=== PATIENT | female | born 1940 | race Caucasian/White ===

== ENCOUNTER → 2016-08-17 | Outpatient (CLI) | payer MEDICARE ==
--- NOTE | 2016-08-18 07:51 | WWHP ---
DATE OF SERVICE: 08/17/2016 CHIEF COMPLAINT: The patient is here for her routine gynecologic exam and mammogram. HPI: This is a 75-year-old G0 who has lifelong history of primary amenorrhea. She has never had a menstrual period and denies any vaginal bleeding. She is without gynecologic complaints. PAST MEDICAL HISTORY: Chronic hypertension, cardiac arrhythmia, hypothyroidism, elevated cholesterol, glaucoma, and osteoporosis. MEDICATIONS: 1. Sectral 400 mg daily. 2. Norvasc 5 mg daily. 3. Synthroid 75 mcg daily. 4. Simvastatin 10 mg daily. 5. Calcium with vitamin D 600 mg b.i.d. 6. Cosopt eye drops daily. 7. Restasis eye drops daily. 8. Vitamin D 50,000 units every other week. ALLERGIES: CORDARONE which caused abnormal thyroid testing. Past surgical history is unchanged from the 2014 H&P. 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 SOCIAL HISTORY: She denies tobacco, alcohol, and drug use and has 2 adopted children and has been a since 2007. FAMILY HISTORY: Unchanged from the 2015 H&P. REVIEW OF SYSTEMS: She has gained about 3 pounds over the last year. She denies respiratory or cardiac problems. GI: Occasional irritable bowel symptoms. She denies maltreatment or falling. She denies any problem with urinary incontinence. PHYSICAL EXAM: Blood pressure 147/64. Height 4 feet 10 inches, weight 93 pounds. Temperature 97.7, pulse 79. This is a short statured, well-nourished white female who is alert and oriented x3 in no acute distress. HEENT is within normal limits. NECK: Supple without mass or thyromegaly. CHEST AND LUNGS: Clear to auscultation. HEART: Regular rate and rhythm. Breasts are without mass or discharge. Axillary exam is negative for adenopathy. BACK: Negative for CVA tenderness. ABDOMEN: Soft, nontender, without palpable masses. PELVIC EXAM: External genitalia reveals moderate atrophy without lesions. Cervix and vagina reveal moderate atrophy without lesions. There is no evidence of vaginal prolapse. The uterus is midposition, nongravid size and nontender. There are no palpable adnexal masses or tenderness. Rectovaginal exam reveals an external hemorrhoid which is red in color measuring approximately 2 cm, which is stable from her previous exam. This is soft and nontender. The rectal exam is otherwise unremarkable. Rectovaginal exam is negative for mass or tenderness and is negative for occult blood. EXTREMITIES: Nontender. IMPRESSION: 1. A 75-year-old menopausal female with lifelong history of primary amenorrhea with normal gynecologic exam. 2. History of osteoporosis and the patient is declining any treatment. 3. Asymptomatic hemorrhoid. PLAN: 1. Pap smear was performed. 2. Self breast examination was discussed. 3. Mammogram will be done today. 4. Osteoporosis management was discussed. We have again discussed the option of medication to help prevent bone fracture and she is declining treatment at this time. 5. She did get flu shot earlier in the fall season. 6. She will return in one year.
--- NOTE | 2016-08-18 10:44 | MM ---
Reason for exam: screening (asymptomatic). Last mammogram was performed 2 years ago. History: Patient is postmenopausal and is nulliparous. Family history of breast cancer in sister at age 71 and premenopausal breast cancer in sister at age 50. Took estrogen for 3 months. Physical Findings: A clinical breast exam by your physician is recommended on an annual basis and results should be correlated with mammographic findings. MG Screening Mammo w CAD Bilateral CC and MLO view(s) were taken. Prior study comparison: August 12, 2014, bilateral MG screening mammo w CAD. July 11, 2013, bilateral digital screening mammo w/CAD. January 04, 2012, bilateral digital screening mammo w/CAD. There are scattered fibroglandular densities. Large skin fold on the left breast. No significant changes when compared with prior studies. ASSESSMENT: Negative, BI-RAD 1 RECOMMENDATION: Routine screening mammogram of both breasts in 1 year.
== END | disposition home or self-care (01) ==
LOC: WWCWWP 12:25
PROVIDERS: ATTEND Obstetrics & Gynecology
DX: Z12.31 Encounter for screening mammogram for malignant neoplasm of breast (principal)

== ENCOUNTER → 2017-12-14 | Outpatient (CLI) | payer MEDICARE ==
[2017-12-14 08:53] VITALS: BP 146/62; PULSE 79; RESP 18; BMI 17.1
--- NOTE | 2017-12-14 09:36 | P.HPOB ---
History of Present Illness H&P Date: 12/14/17 Chief Complaint: The patient is here for her routine gynecologic exam and mammogram. This is a 77-year-old G0 with a history of lifelong primary amenorrhea. The patient denies any vaginal bleeding. She is without gynecologic complaints. She has a long history of osteoporosis and has refused medications for this in the past. She did have a vertebral fracture earlier this year which did not require surgery. Review of Systems The patient has lost about 11 pounds of last year. Respiratory: she's had some sinus and allergy issues. She denies cardiac and G.I. problems. She denies maltreatment. She fell earlier this year fracturing a thoracic vertebrae but this did not require surgery. : she denies any significant problems with urinary leakage. Past Medical History Past Medical History: Hyperlipidemia, Hypertension, Thyroid Disorder ( Hypothyroid) Additional Past Medical History / Comment(s): Cardiac arythmia, glaucoma and osteoporosis. 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 She has had lifelong amenorrhea. History of Any Multi-Drug Resistant Organisms: None Reported Past Surgical History: Cholecystectomy, Orthopedic Surgery, Tonsillectomy Additional Past Surgical History / Comment(s): thyroidectomy, cataract surgery. Multiple colonoscopies in the most recent was in 2012. Past Anesthesia/Blood Transfusion Reactions: No Reported Reaction Past Psychological History: No Psychological Hx Reported Smoking Status: Never smoker Past Alcohol Use History: None Reported Past Drug Use History: None Reported Additional History: She is a . She is not sexually active. - Past Family History Mother Family Medical History: No Reported History Father Family Medical History: Cancer Additional Family Medical History / Comment(s): rectal, lung Sister(s) Family Medical History: Cancer (Breast) Medications and Allergies Home Medications Medication Instructions Recorded Confirmed Type Acebutolol HCl [Sectral] 400 mg PO DAILY 12/14/17 12/14/17 History Betamethasone/Propylene Glyc 30 ml TP DAILY 12/14/17 12/14/17 History [Betamethasone Dp Aug 0.05% Lot] Ergocalciferol (Vitamin D2) 50,000 unit PO [id number] 12/14/17 12/14/17 History [Vitamin D2] Latanoprost/Pf [Latanoprost 0.005% 1 drop BOTH EYES HS 12/14/17 12/14/17 History Eye Drop] Levothyroxine Sodium [Synthroid] 75 mcg PO DAILY 12/14/17 12/14/17 History Losartan/Hydrochlorothiazide 1 mg PO DAILY 12/14/17 12/14/17 History [Losartan-Hctz 50-12.5 mg Tab] Multivitamins, Thera [Multivitamin 1 tab PO DAILY 12/14/17 12/14/17 History (formulary)] Simvastatin [Zocor] 20 mg PO HS 12/14/17 12/14/17 History amLODIPine BES/OLMESARTAN MED 1 each PO DAILY 12/14/17 12/14/17 History [amLODIPine BES/OLMESARTAN MED 5-20 mg] cycloSPORINE [Restasis] 1 applicator BOTH EYES BID 12/14/17 12/14/17 History Allergies Allergy/AdvReac Type Severity Reaction Status Date / Time amiodarone [From Cordarone] Allergy Unknown Verified 12/14/17 09:07 Exam Vital Signs Pulse Resp BP 12/14/17 08:41 79 18 146/62 Intake and Output 12/13/17 12/14/17 12/14/17 22:59 06:59 14:59 Other: Weight 37.195 kg Height 4'10", BMI 17.1. This is a short statured, well-nourished white female who is alert and oriented times 3 in no acute distress. HEENT: Within normal limits. NECK: Supple without mass or thyromegaly. CHEST AND LUNGS: Clear to auscultation. HEART: Regular rate and rhythm. BREASTS: Are without mass or discharge. AXILLARY EXAM: Negative for adenopathy. BACK: Negative for CVA tenderness. ABDOMEN: Soft, nontender, without palpable masses. PELVIC EXAM: Normal external genitalia with moderate atrophy. Cervix and vagina appear normal with moderate atrophy. There is no unusual discharge. There is no evidence of prolapse. The uterus is midposition, small, nongravid size and nontender. There are no palpable adnexal masses or tenderness. RECTAL EXAM: there are 2 external hemorrhoids each measuring approximately 1.5 cm. Rectovaginal exam is negative for mass or tenderness and is negative for occult blood. EXTREMITIES: Nontender. IMPRESSION: 1. 77-year-old menopausal female with a lifelong history of primary amenorrhea with normal gynecologic exam. 2. History of osteoporosis and is now status post vertebral fracture. PLAN: 1. Pap smear was deferred since she had a normal one last year. 2. Self breast awareness was discussed with the patient. 3. Screening mammogram will be done today. 4. Osteoporosis management was discussed. I have recommended medication to help prevent bone fracture in the future. She understands that she is is at a significantly increased risk for fracture, especially with her history of a vertebral fracture. She would like information on osteoporosis medical treatment. The ACOG handout with frequently asked questions on osteoporosis was given to the patient. Also information on Fosamax was given to the patient. She would like to review the information and will consider treatment. She'll contact me or Dr. Rosado if she is interested in starting treatment. I have also stressed the importance of adequate calcium, vitamin D and regular exercise. We also discussed ways of preventing trips or falls. 5. She did get a flu shot last fall. 6. She will return in one year.
--- NOTE | 2017-12-14 17:22 | BD ---
EXAMINATION TYPE: Axial Bone Density DATE OF EXAM: 12/14/2017 COMPARISON: NONE CLINICAL HISTORY: 77-year-old female screening, post menopausal Height: 4'9 Weight: 81 FRAX RISK QUESTIONS: History of Fracture in Adulthood: y Secondary Osteoporosis: 3. Menopause before 45: y 4. Malnutrition: n RISK FACTORS HISTORY OF: Spine Fracture: T9 When: 08/2017 Family History of Osteoporosis: y Active: n Postmenopausal woman: y MEDICATIONS: Additional Medications: blood pressure, cholesterol, heart Additional History: EXAM MEASUREMENTS: Bone mineral densitometry was performed using the [employer] System. Bone mineral density as measured about the Lumbar spine is: ----- L1-L4(G/cm2): 0.744 T Score Values are as follows: ----- L2: -3.7 ----- L3: -3.0 ----- L4: -3.8 ----- L1-L4:-3.6 Bone mineral density about the R hip (g/cm2): 0.802 Bone mineral density about the L hip (g/cm2): 0.746 T Score values are as follows: -----R Neck: -1.7 -----L Neck: -2.1 -----R Total: -3.2 -----L Total: -3.6 IMPRESSION: Osteoporosis (T Score less than -2.5). There is increased fracture risk and therapy is usually indicated based on age. Re-Screen 1-2 years. NOTE: T-SCORE=SD OF THE YOUNG ADULT MEAN.
--- NOTE | 2017-12-20 16:18 | MM ---
Reason for exam: screening (asymptomatic). Last mammogram was performed 1 year and 4 months ago. History: Patient is postmenopausal and is nulliparous. Family history of breast cancer in sister at age 71 and premenopausal breast cancer in sister at age 50. Took estrogen for 3 months. MG Screening Mammo w CAD Bilateral CC and MLO view(s) were taken. Prior study comparison: August 17, 2016, bilateral MG screening mammo w CAD. August 12, 2014, bilateral MG screening mammo w CAD. July 11, 2013, bilateral digital screening mammo w/CAD. There are scattered fibroglandular densities. There are benign linear calcifications in the right breast. No discrete abnormality. ASSESSMENT: Benign, BI-RAD 2 RECOMMENDATION: Routine screening mammogram of both breasts in 1 year.
== END | disposition home or self-care (01) ==
LOC: WWCWWP 08:27
PROVIDERS: ATTEND Obstetrics & Gynecology
DX: Z12.31 Encounter for screening mammogram for malignant neoplasm of breast (principal); M81.0 Age-related osteoporosis without current pathological fracture; Z78.0 Asymptomatic menopausal state
CPT/HCPCS: 77067; 77080

== ENCOUNTER 2018-05-18 10:02 | Day surgery (SDC) | payer MEDICARE ==
[2018-05-17 08:29] VITALS: BMI 18.1
[2018-05-18] MEDS ORDERED: SODIUM CHLORIDE 0.9% 500 ML 500 ML IV ONE (10:46)
[2018-05-18 10:50] VITALS: RESP 16; TEMP 97.4
[2018-05-18] MEDS ORDERED: fentaNYL (PF) 50 MCG/ML 2 ML AMP ONE (11:49)
[2018-05-18] MEDS ORDERED: BENZOCAINE SPRAY 1 CAN MUCOUS MEM ONE (12:27)
[2018-05-18] MEDS ORDERED: MIDAZOLAM 2 MG/2 ML VIAL IV ONE (12:27)
[2018-05-18] MEDS ORDERED: fentaNYL (PF) 50 MCG/ML 2 ML AMP IV ONE (12:30)
[2018-05-18] MEDS ORDERED: SODIUM CHLORIDE 0.9% 1,000 ML IV SCH (12:45)
[2018-05-18 12:56] VITALS: BP 144/63
--- NOTE | 2018-05-18 13:16 | ECHOT ---
TRANSESOPHAGEAL ECHOCARDIOGRAM Mrs. Steele was advised further evaluation with a to evaluate the aortic regurgitation and questionable echogenic mass near the pulmonic valve. The patient was given intravenous sedation Versed and fentanyl and transesophageal echocardiogram was performed without any complications. Left ventricular chamber is normal in size with normal left ventricular systolic functions. Mitral valve is mildly thickened. Mild mitral regurgitation is noted. Left atrial appendage is clear. Aortic valve is mildly thickened. There is mild to moderate aortic regurgitation noted. The ascending aorta is normal. Tricuspid valve morphology is normal. Pulmonic valve was visualized. Pulmonic valve leaflets are thin. There is no evidence of mass attached to the pulmonic valve. Mild pulmonic regurgitation was noted. Interatrial septum is intact. There is no evidence of any PFO. FINAL IMPRESSION: 1. There is a mild thickening of the aortic leaflets noted with mild to moderate aortic regurgitation noted. 2. Left ventricular systolic function is normal. The left ventricle is not enlarged. 3. Mitral and tricuspid valve morphology is normal. 4. Pulmonic valve morphology is normal. There is no definite evidence of any echogenic mass visualized on the pulmonic valve. There is a mild pulmonic regurgitation noted. 5. The interatrial septum is intact. 6. There is no evidence of any patent foramen ovale. MMODL / IJN: [id number] /
[2018-05-18 14:26] VITALS: PULSE 68
== END 2018-05-18 14:24 | disposition home or self-care (01) ==
LOC: CATHCVL 10:02
PROVIDERS: ATTEND Internal Medicine Cardiovascular Disease
DX: I35.1 Nonrheumatic aortic (valve) insufficiency (principal); I37.1 Nonrheumatic pulmonary valve insufficiency; I20.9 Angina pectoris, unspecified; I10 Essential (primary) hypertension; E78.2 Mixed hyperlipidemia; Z79.890 Hormone replacement therapy; Z79.899 Other long term (current) drug therapy; Z88.8 Allergy status to other drugs, medicaments and biological substances
CPT/HCPCS: 93312; 93320; 93325; J2250; J3010

== ENCOUNTER → 2019-06-06 | Outpatient (CLI) | payer MEDICARE ==
[2019-06-06 11:00] VITALS: BP 108/59; PULSE 91; RESP 18; TEMP 97.4
--- NOTE | 2019-06-06 11:47 | P.HPOB ---
History of Present Illness H&P Date: 06/06/19 Chief Complaint: The patient is here for her routine gynecologic exam and ma mmogram. This is an 78-year-old G0 with a lifelong history of primary amenorrhea. She has never had any menstrual periods. She is without gynecologic complaints. She has been on Fosamax since approximately January 2018. She states she is doing well with it. Review of Systems Weight has been stable. Respiratory: Occasional cough and symptoms from her recently diagnosed COPD .she sees a long specialist for this. She denies cardiac or G.I. problems. She denies maltreatment or problems with falling. : She has occasional urinary leakage if she does not get to the bathroom in time. Past Medical History Past Medical History: Eye Disorder, Hyperlipidemia, Hypertension, Thyroid Disorder Additional Past Medical History / Comment(s): Bronchialectasis, Cardiac arrythmia, glaucoma and osteoporosis. 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 She has lifelong primary amenorrhea. History of Any Multi-Drug Resistant Organisms: None Reported Past Surgical History: Cholecystectomy, Orthopedic Surgery, Tonsillectomy Additional Past Surgical History / Comment(s): Thyroidectomy, bilateral cataract surgery, multiple colonoscopies(last 2012). Past Anesthesia/Blood Transfusion Reactions: No Reported Reaction Past Psychological History: No Psychological Hx Reported Smoking Status: Never smoker Past Alcohol Use History: None Reported Past Drug Use History: None Reported Additional History: She is a and is not sexually active. - Past Family History Mother Family Medical History: No Reported History Father Family Medical History: Cancer Additional Family Medical History / Comment(s): Rectal and Lung Cancer Sister(s) Family Medical History: Cancer Additional Family Medical History / Comment(s): Breast Cancer Medications and Allergies Home Medications Medication Instructions Recorded Confirmed Type Acebutolol HCl [Sectral] 400 mg PO DAILY 12/14/17 06/06/19 History Ergocalciferol (Vitamin D2) 50,000 unit PO [id number] 12/14/17 06/06/19 History [Vitamin D2] Latanoprost/Pf [Latanoprost 0.005% 1 drop BOTH EYES HS 12/14/17 06/06/19 History Eye Drop] Levothyroxine Sodium [Synthroid] 75 mcg PO HS 12/14/17 06/06/19 History Simvastatin [Zocor] 20 mg PO HS 12/14/17 06/06/19 History cycloSPORINE [Restasis] 1 applicator BOTH EYES BID 12/14/17 06/06/19 History Alendronate Sodium [Fosamax] 70 mg PO WEEKLY #12 tablet 01/31/18 06/06/19 Rx amLODIPine [Norvasc] 5 mg PO DAILY 05/17/18 06/06/19 History Budesonide/Formoterol Fumarate 2 puff INHALATION BID 06/06/19 06/06/19 History [Symbicort 160-4.5 Mcg Inhaler] Doxycycline [Vibramycin] 50 mg PO Q12HR 06/06/19 06/06/19 History Montelukast [Singulair] 10 mg PO DAILY 06/06/19 06/06/19 History Multivitamin [Multivitamins Adult 1 each PO DAILY 06/06/19 06/06/19 History Gummies] Olmesartan Medoxomil 20 mg PO DAILY 06/06/19 06/06/19 History predniSONE 5 mg PO DAILY 06/06/19 06/06/19 History Allergies Allergy/AdvReac Type Severity Reaction Status Date / Time amiodarone [From Cordarone] Allergy Unknown Verified 06/06/19 11:00 Exam Vital Signs Temp Pulse Resp BP Pulse Ox 06/06/19 10:55 97.4 F L 91 18 108/59 94 L Intake and Output 06/05/19 06/06/19 06/06/19 22:59 06:59 14:59 Other: Weight 38.102 kg Height 4 feet 10 inches, weight 84 pounds, BMI 17.6. This is a short statured well-nourished white female who is alert and oriented times 3 in no acute distress. HEENT: Within normal limits. NECK: Supple without mass or thyromegaly. CHEST AND LUNGS: Clear to auscultation. HEART: Regular rate and rhythm. BREASTS: Are without mass or discharge. AXILLARY EXAM: Negative for adenopathy. BACK: Negative for CVA tenderness. ABDOMEN: Soft, nontender, without palpable masses. PELVIC EXAM: Normal external genitalia with moderate atrophy. Cervix and vagina appear normal moderate atrophy. There is no unusual discharge. There is no evidence of prolapse. The uterus is midposition, nongravid size and nontender. There are no palpable adnexal masses or tenderness. RECTAL EXAM: There are 2 anterior external hemorrhoids measuring approximately 1.0 and 1.5 cm. They are benign appearing and soft and nontender. Rectovaginal exam is negative for mass or tenderness and is negative for occult blood. EXTREMITIES: Nontender. IMPRESSION: 1. 78-year-old menopausal female with normal gynecologic exam. 2. Lifelong amenorrhea. 3. Osteoporosis and was started on Fosamax in 01/2018. PLAN: 1. Pap smears have been discontinued. She has no history of cervical problems and has been adequately screened. 2. Self breast awareness was discussed with the patient. 3. A mammogram will be done today. 4. Osteoporosis management was discussed. I have stressed the importance of adequate calcium, vitamin D and regular exercise. Recommended amounts of calcium and vitamin D were also discussed. She will continue to take Fosamax. The electronic prescription will be sent to [facility]. I recommended doing a bone density test this year and the order slip was given to the patient for this. 5. She did receive her flu shot this past fall. 6. The patient was advised to return in 1-2 years for her well woman examination.
--- NOTE | 2019-06-07 11:37 | MM ---
Reason for exam: screening (asymptomatic). Last mammogram was performed 1 year and 6 months ago. History: Patient is postmenopausal and is nulliparous. Family history of breast cancer in sister at age 71 and premenopausal breast cancer in sister at age 50. Took estrogen for 3 months. Physical Findings: A clinical breast exam by your physician is recommended on an annual basis and results should be correlated with mammographic findings. MG Screening Mammo w CAD Bilateral CC and MLO view(s) were taken. Prior study comparison: December 14, 2017, bilateral MG screening mammo w CAD. August 17, 2016, bilateral MG screening mammo w CAD. There are scattered fibroglandular densities. There is no discrete abnormality. ASSESSMENT: Negative, BI-RAD 1 RECOMMENDATION: Routine screening mammogram of both breasts in 1 year.
== END | disposition home or self-care (01) ==
LOC: WWCWWP 10:34
PROVIDERS: ATTEND Obstetrics & Gynecology
DX: Z12.31 Encounter for screening mammogram for malignant neoplasm of breast (principal)
CPT/HCPCS: 77067

== ENCOUNTER → 2020-12-03 | Outpatient (CLI) | payer MEDICARE ==
--- NOTE | 2020-12-04 16:25 | CT ---
EXAMINATION TYPE: CT chest wo con DATE OF EXAM: 12/03/2020 COMPARISON: None HISTORY: Bronchiectasis, High Res CT DLP: 209.30 mGycm, Automated exposure control for dose reduction was used. CONTRAST: None TECHNIQUE: Axial images were obtained at 1 mm thick sections at 10 mm intervals. This will limit po rtions of the examination which may not be visualized within the [id number]. Images were obtained in the prone and supine views. FINDINGS: Lobular density is in the supraclavicular region larger on the left than the right. This is atypical for thyroid is of uncertain etiology. No suspicious lung nodules or focal infiltrates are present. There is a benign-appearing calcificat ion in the posterior lateral right lung base. Series 10 image 16. Additional punctate calcification m ay be in the posterior lateral right lung. Series 9 image 7. There is some pneumonitis type changes within the right lower lung field which is nonspecific. Follow -up CT chest in 6 months is recommended for this groundglass opacity. Series 10 image 16 There appears to be some pulmonary fibrosis within the right middle lobe at the cardiophrenic angle. No enlarged mediastinal or hilar adenopathy is evident. The ascending aorta diameter at the level o f the main pulmonary artery is 3.4 cm. The main pulmonary artery diameter at the bifurcation is 2.[address] sections are obtained through the upper abdomen. Abdomen is essentially unremarkable. IMPRESSIONS: 1. Groundglass opacity right midlung. Follow-up standard CT chest in 6 months is recommended. 2. No bronchiectasis. 3. Pulmonary fibrosis right middle lobe at the lung base
== END | disposition home or self-care (01) ==
LOC: RADCTMAIN 16:23
PROVIDERS: ATTEND Internal Medicine Critical Care Medicine
DX: J47.9 Bronchiectasis, uncomplicated (principal); J84.10 Pulmonary fibrosis, unspecified
CPT/HCPCS: 71250